=== PATIENT | male | born 1955 | race Two or more races ===

== ENCOUNTER 2018-11-27 19:47 | Emergency (ER) | payer MEDICARE, OTHER ==
[~2018-11-27] VITALS: Ht 182.9 cm; Wt 99.8 kg
[2018-11-27] MEDS ORDERED: ASPI-605 PO (20:05)
--- NOTE | 2018-11-27 20:51 | NUR ---
Collected urine sample, sent to lab.
--- NOTE | 2018-11-27 20:53 | NUR ---
Bladder scan done per verbal MD order showing 84 mL urine retaining. MD notified.
[2018-11-27 20:57] LABS: *BILIRUBIN,URIN NEGATIVE (NEGATIVE); *BLOOD, URINE 2+ (NEGATIVE); *CLARITY,URINE CLEAR (CLEAR); *COLOR,URINE YELLOW (YELLOW); *KETONES,URINE NEGATIVE (NEGATIVE); *UROBILINOGEN,URINE 0.2 E.U./dl (NORMAL); LEUKOCYTE ESTERASE ,URINE NEGATIVE (NEGATIVE); NITRITE, URINE NEGATIVE (NEGATIVE); PH,URINE 5.5 (5.0-8.0); UGLUCOSE NEGATIVE (NEGATIVE)
[2018-11-27 21:09] LABS: RBC,URINE 20-50 /HPF (0-3)
[2018-11-27 21:15] LABS: WBC,URINE NONE SEEN /HPF (0-3)
[2018-11-27 21:16] LABS: MUCUS,URINE MANY /LPF (0-FEW)
--- NOTE | 2018-11-27 22:32 | NUR ---
Patient discharged to home in stable conditon. Written and verbal after care instructions given. Patient verbalizes understanding of instructions. Pt ambulated out of ER in steady gait. All belongings with pt. VSS. EILEEN reese.
[2018-11-27 22:34] VITALS: BP 147/81
== END 2018-11-27 22:34 | disposition home or self-care (01) ==
LOC: ER 19:49
DX: R35.0 Frequency of micturition (principal); R39.11 Hesitancy of micturition; R19.7 Diarrhea, unspecified; I48.91 Unspecified atrial fibrillation; I50.9 Heart failure, unspecified; I25.2 Old myocardial infarction; Z86.73 Personal history of transient ischemic attack (TIA), and cerebral infarction without residual deficits; Z79.1 Long term (current) use of non-steroidal anti-inflammatories (NSAID)
CPT/HCPCS: A4663